=== PATIENT | male | born 1940 | race African-American/Black ===

== ENCOUNTER 2018-03-20 18:39 | Observation (INO) | payer OTHER, BC ==
[2018-03-20] MEDS ORDERED: ACETAMINOPHEN 500 MG TABLET (FP) PO ONE (19:59)
[2018-03-20] MEDS ORDERED: ACETAMINOPHEN 325 MG TABLET (FP) ONE (20:02)
--- NOTE | 2018-03-20 20:26 | PDOC ---
Attending Attestation - Resident Resident Name: Juanita Lopez - ED Attending Attestation I have performed the following: I have examined & evaluated the patient, The case was reviewed & discussed with the resident, I agree w/resident's findings & plan, Exceptions are as noted - HPI HPI: 77 yo M presents s/p fall 3 days ago presents with R hip pain. He states he was in [facility] on vacation, had a mechanical fall. He has had difficulty walking since the fall. Denies weakness, numbness. - Physicial Exam PE: GENERAL: Awake, alert, and fully oriented, in no acute distress HEAD: No signs of trauma EYES: PERRLA, EOMI, sclera anicteric, conjunctiva clear ENT: Auricles normal inspection, hearing grossly normal, nares patent, oropharynx clear without exudates. Moist mucosa NECK: Normal ROM, supple, no lymphadenopathy, JVD, or masses LUNGS: Breath sounds equal, clear to auscultation bilaterally. No wheezes, and no crackles HEART: Regular rate and rhythm, normal S1 and S2, no murmurs, rubs or gallops ABDOMEN: Soft, nontender, normoactive bowel sounds. No guarding, no rebound. No masses MUSCULOSKELETAL: R hip with pain on ROM. No deformity. Legs are symmetric in length. Normal range of motion, no edema. No clubbing or cyanosis. No cords, erythema, or tenderness NEUROLOGICAL: Cranial nerves II through XII grossly intact. Normal speech. Motor and sensation intact. SKIN: Warm, Dry, normal turgor, no rashes or lesions noted. - Medical Decision Making Pt with R hip pain s/p fall. Will obtain XR to r/o hip fx, pelvic fx.
--- NOTE | 2018-03-20 23:04 | PDOC ---
History of Present Illness - General Chief Complaint: Injury Stated Complaint: HIP PAIN/FALL Time Seen by Provider: 03/20/18 19:10 History Source: Patient Exam Limitations: No Limitations - History of Present Illness Initial Comments: 03/20/18 22:40 Pt is a 77yo m with PMH of CAD s/p stent placement presenting to ED with complaints of R hip pain s/p fall 3 days ago on . Pt said he was in the [facility] when he fell onto his hands and rolled onto his R hip. He obtained some scrapes and had R hip pain. He denies LOC, syncope. Pt went to be evaluated and was told that he was dehydrated which may have caused him to fall. Per pt he was then discharged. He was able to walk on Wednesday but had difficult walking and standing the rest of the weekend. Pt had to use a wheelchair to get onto the plane back here. Pt came right here to the hospital right after he landed. He endorses pain in the R posterior hip. He has not taken any medications for pain. Past History - Past Medical History Allergies/Adverse Reactions: Allergies Allergy/AdvReac Type Severity Reaction Status Date / Time No Known Allergies Allergy Verified 03/20/18 19:01 Home Medications: Ambulatory Orders Unobtainable 03/20/18 COPD: No HTN: Yes - Surgical History Cardiac Surgery: Yes (stent x3) - Suicide/Smoking/Psychosocial Hx Smoking Status: No Smoking History: Former smoker Have you smoked in the past 12 months: No Number of Cigarettes Smoked Daily: 0 Information on smoking cessation initiated: No Hx Alcohol Use: No Drug/Substance Use Hx: No Review of Systems - Review of Systems Able to Perform ROS?: Yes Constitutional: No: Chills, Fever HEENTM: No: Recent change in vision Respiratory: No: Cough, Shortness of Breath Cardiac (ROS): No: Chest Pain, Lightheadedness, Palpitations ABD/GI: No: Constipated, Diarrhea, Nausea, Rectal Bleeding, Vomiting, Abdominal cramping : No: Burning, Dysuria, Hematuria, Incontinence Musculoskeletal: Yes: See HPI, Back Pain, Joint Pain (R hip). No: Muscle Pain, Muscle Weakness, Neck Pain Integumentary: Yes: Other (abrasions on L elbow, R knee) Neurological: No: Headache, Numbness, Tingling, Tremors *Physical Exam - Vital Signs Last Vital Signs Temp Pulse Resp BP Pulse Ox 98.7 F 78 18 174/108 H 98 03/20/18 19:01 03/20/18 19:01 03/20/18 19:01 03/20/18 19:01 03/20/18 19:01 - Physical Exam General Appearance: Yes: Nourished, Appropriately Dressed, Mild Distress HEENT: positive: EOMI, LITZY, Hearing Grossly Normal Neck: positive: Trachea midline, Supple. negative: Lymphadenopathy (R), Lymphadenopathy (L) Respiratory/Chest: positive: Lungs Clear, Normal Breath Sounds. negative: Crackles, Rales, Rhonchi, Stridor, Wheezing Cardiovascular: positive: Regular Rhythm, Regular Rate. negative: S1, S2, Edema , JVD Vascular Pulses: Carotid (R): 2+, Carotid (L): 2+, Dorsalis-Pedis (R): 2+, Doralis-Pedis (L): 2+ Gastrointestinal/Abdominal: positive: Normal Bowel Sounds, Soft. negative: Distended, Guarding, Rebound, Tenderness Musculoskeletal: positive: Other (Tender R posterior hip. Pain with active ROM and passive ROM). negative: CVA Tenderness, Vertebral Tenderness Extremity: positive: Normal Capillary Refill, Pelvis Stable. negative: Swelling , Calf Tenderness Integumentary: positive: Normal Color, Dry, Warm, Other (abrasion to R knee and L elbow) Neurologic: positive: rigger helper II-XII NML intact, Fully Oriented, Alert, Normal Mood/ Affect, Normal Response, Motor Strength 5/5 ED Treatment Course - RADIOLOGY Radiology Studies Ordered: Category Date Time Status HIP & PELVIS-RIGHT [RAD] Stat Radiology 03/20/18 20:12 Taken - Medications Given in the ED: ED Medications Discontinued Medications Generic Name Dose Route Start Last Admin Trade Name Freq PRN Reason Stop Dose Admin Acetaminophen 1,000 mg 03/20/18 19:59 03/20/18 20:06 Tylenol - PO 03/20/18 20:00 1,000 mg ONCE ONE Administration Medical Decision Making - Medical Decision Making 03/20/18 23:12 77 yo m presenting with R hip/back pain s/p fall 3 days ago. Vitals: hypertensive PE: R hip pain with active and passive ROM. DDx: fracture, spasm Holding off on labs at this time, pt was not down for long periods of time, was ambulatory after event however complains of pain with movement. Will hold off on labs at this time. Will give pt Tylenol for pain. Xray of hip ordered. X[facility] sent to [facility]: mild osteoarthritic changes, multilevel lumbar degenerative disc disease. No evidence of fracture. Pt still complaining of pain and having pain with movements, having difficulty standing up. Will order CT. 03/21/18 00:21 CT negative for fracture. OA changes noted in hip as well as degenerative changes in lumbar spine. Considering percocet for pain control. Will reevaluate. If tolerating, can be dc home with pain control. If not, considering admission for pain and PT. Pt signed out to Dr. Camilo *DC/Admit/Observation/Transfer Diagnosis at time of Disposition: Hip pain Qualifiers: Laterality: right Qualified Code(s): M25.551 - Pain in right hip - Referrals - Patient Instructions - Post Discharge Activity
--- NOTE | 2018-03-21 00:21 | PDOC ---
*Physical Exam - Vital Signs Last Vital Signs Temp Pulse Resp BP Pulse Ox 98.7 F 78 18 174/108 H 98 03/20/18 19:01 03/20/18 19:01 03/20/18 19:01 03/20/18 19:01 03/20/18 19:01 03/21/18 00:17 Care endorsed to me by Dr. Lopez at the end of her shift. The patient is a 77 YOM with h/o osteoarthritis who fell in the [facility] on , initially was able to walk, but his hip pain has been worsening since yesterday. Returned from the [facility] today and has been having worsening pain on ambulation, unable to control it today. Got Tylenol here in the ED with partial relief. Had XR which showed no clear e/o hip fxr, still had residual pain, now pending CT hip/ pelvis. ED Treatment Course - Medications Given in the ED: ED Medications Discontinued Medications Generic Name Dose Route Start Last Admin Trade Name Freq PRN Reason Stop Dose Admin Acetaminophen 1,000 mg 03/20/18 19:59 03/20/18 20:06 Tylenol - PO 03/20/18 20:00 1,000 mg ONCE ONE Administration Medical Decision Making - Medical Decision Making 03/21/18 01:20 The patient initially stated he wanted to go home. Wishes to stand up from hospital bed and get back into wheelchair because this was more comfortable before. The tech and I help him into a wheelchair with significant increase in pain. The patient is clearly unable to reposition or stand or walk without two-person assist. He is unable to walk. Morphine 4 mg IV push is ordered. The patient will require admission. Admission labs ordered and PIV is placed. Will endorse patient's care to carpet jack resident pending admission lab results followed by admission to [facility]. *DC/Admit/Observation/Transfer Diagnosis at time of Disposition: Hip pain Qualifiers: Laterality: right Qualified Code(s): M25.551 - Pain in right hip Back pain Qualifiers: Back pain location: low back pain Chronicity: acute Back pain laterality: right Sciatica presence: without sciatica Qualified Code(s): M54.5 - Low back pain - Referrals - Patient Instructions - Post Discharge Activity
[2018-03-21] MEDS ORDERED: morphine CARPU-JECT 4 MG/1 ML DISP.SYRIN IVPUSH ONE (01:32)
[2018-03-21] MEDS ORDERED: SODIUM CHLORIDE 0.9% 500 ML INFUS.BAG IV ONE (01:33)
[2018-03-21] MEDS ORDERED: morphine SULFATE 4 MG/ML VIAL ONE (01:36)
[2018-03-21 02:10] LABS: BASO % 0.6 % (0-2.0); HEMOGLOBIN 15.2 GM/dL (11.7-16.9); LYMPH % 22.1 % (8-40); MEAN CELL VOLUME 94.1 fl (80-96); MEAN PLT VOLUME 9.2 fl (7.5-11.1); MONO % 8.2 % (3.8-10.2); NEUT % 62.1 % (42.8-82.8); PLATELET COUNT 223 K/MM3 (134-434); RBC 4.89 M/mm3 (4.00-5.60); RDW 14.8 % (11.9-15.9); WHITE BLOOD COUNT 7.3 K/mm3 (4.0-10.0)
[2018-03-21 02:22] LABS: INR 1.03 (0.83-1.09); PROTHROMBIN TIME (PATIENT) 12.2 SEC (9.7-13.0)
[2018-03-21 02:39] LABS: ALBUMIN 4.1 g/dl (3.4-5.0); ALK PHOS 92 U/L (45-117); ANION GAP 6 MMOL/L (8-16); BILIRUBIN,TOTAL 0.6 mg/dL (0.2-1); BLOOD UREA NITROGEN 12 mg/dL (7-18); CALCIUM 9.2 mg/dL (8.5-10.1); CHLORIDE 105 mmol/L (98-107); CO2 30 mmol/L (21-32); CREATININE 1.1 mg/dL (0.55-1.3); GLUCOSE,RANDOM 95 mg/dL (74-106); POTASSIUM 3.7 mmol/L (3.5-5.1); SGOT/AST 20 U/L (15-37); SGPT/ALT 25 U/L (13-61); SODIUM 141 mmol/L (136-145)
--- NOTE | 2018-03-21 02:52 | PDOC ---
*Physical Exam - Vital Signs Last Vital Signs Temp Pulse Resp BP Pulse Ox 98.7 F 78 18 174/108 H 98 03/20/18 19:01 03/20/18 19:01 03/20/18 19:01 03/20/18 19:01 03/20/18 19:01 ED Treatment Course - LABORATORY CBC & Chemistry Diagram: 03/21/18 01:50 03/21/18 01:50 - ADDITIONAL ORDERS Additional order review: Laboratory Results 03/21/18 01:50 Sodium 141 Potassium 3.7 Chloride 105 Carbon Dioxide 30 Anion Gap 6 L BUN 12 Creatinine 1.1 Creat Clearance w eGFR > 60 Random Glucose 95 Calcium 9.2 Total Bilirubin 0.6 AST 20 ALT 25 Alkaline Phosphatase 92 Total Protein 8.0 Albumin 4.1 03/21/18 01:50 RBC 4.89 MCV 94.1 MCHC 33.0 RDW 14.8 MPV 9.2 Neutrophils % 62.1 Lymphocytes % 22.1 Monocytes % 8.2 Eosinophils % 7.0 H Basophils % 0.6 - Medications Given in the ED: ED Medications Discontinued Medications Generic Name Dose Route Start Last Admin Trade Name Geovannyq PRN Reason Stop Dose Admin Acetaminophen 1,000 mg 03/20/18 19:59 03/20/18 20:06 Tylenol - PO 03/20/18 20:00 1,000 mg ONCE ONE Administration Morphine Sulfate 4 mg 03/21/18 01:32 03/21/18 01:51 Morphine Injection - IVPUSH 03/21/18 01:33 4 mg ONCE ONE Administration Sodium Chloride 1,000 ml 03/21/18 01:33 03/21/18 01:57 Normal Saline - IV 03/21/18 01:34 1,000 ml ONCE ONE Administration Medical Decision Making - Medical Decision Making 03/21/18 03:23 Labs unremarkable (CBC, CMP, INR) Case discussed with Dr. Guy Cardoza. Pt to be admitted for observation at this time. *DC/Admit/Observation/Transfer Diagnosis at time of Disposition: Hip pain Qualifiers: Laterality: right Qualified Code(s): M25.551 - Pain in right hip Back pain Qualifiers: Back pain location: low back pain Chronicity: acute Back pain laterality: right Sciatica presence: without sciatica Qualified Code(s): M54.5 - Low back pain - Discharge Dispostion Condition at time of disposition: Fair Decision to Admit order: Yes - Referrals - Patient Instructions - Post Discharge Activity
--- NOTE | 2018-03-21 03:44 | PN ---
Teaching Attending Note Name of Resident: Guy Bailey ATTENDING PHYSICIAN STATEMENT I saw and evaluated the patient. I reviewed the resident's note and discussed the case with the resident. I agree with the resident's findings and plan as documented. SUBJECTIVE: Patient is a 77 year old man with PMH of CAD s/p stent placement presenting to ER with complaints of R hip pain s/p fall 3 days ago on . He was in the [facility] when he fell onto his hands and rolled onto his R hip. He obtained some scrapes and had R hip pain. He denies LOC, syncope but says he has had episodes of syncope prior to this recent event. He went to be evaluated and was told that he was dehydrated which may have caused him to fall. He was able to walk on Wednesday but had difficult walking and standing the rest of the weekend. He had to use a wheelchair to get onto the plane back here. He came right here to the hospital right after he landed. He has pain in the right posterior hip. OBJECTIVE: Alert Vital Signs Period Temp Pulse Resp BP Sys/Tao Pulse Ox Last 24 Hr 98.7 F 78 18 174/108 98 HEENT: No Jaundice, eye redness or discharge, PERRLA, EOMI. Normocephalic, atraumatic. External ears are normal and hearing is grossly intact. No nasal discharge. Neck: Supple, nontender. No palpable adenopathy or thyromegaly. No JVD Chest: Good effort. Clear to auscultation and percussion. Heart: Regular. No S3, rub or murmur Abdomen: Not distended, soft, nontender and no HSM. No rebound or guarding. Normoactive bowel sounds. Ext: Peripheral pulses intact. No leg edema. Left knee and left elbow abrasion. Tender right hip. Skin: Warm and dry. No petechiae, rash or ecchymosis. Neuro: Alert. Oriented x3. CN 2-12 grossly intact. Sensation grossly intact in all four extremities and DTR are symmetric. Gait cannot be tested for safety reasons. Home Medications Medication Instructions Recorded Unobtainable 03/20/18 Abnormal Lab Results 03/21/18 03/21/18 01:50 01:50 Eosinophils % 7.0 H Anion Gap 6 L ASSESSMENT AND PLAN: 1. Fall and Inability to ambulate - Xrays and CT of the hip do not reveal any fracture or acute pathology. Will get Head CT and MRI of his spinal cord. Get ECHO, carotid doppler and do neurochecks q 2 hours. Consult neurology. Apply antibacterial cream to skin abrasions. 2. DVT prophylaxis - Lovenox 40 mg SQ q 24 hours. 3. Advance directives - Full code
--- NOTE | 2018-03-21 04:09 | HP ---
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 this past . Pt endorses he was on the sidewalk jogging in the [facility] when he fell onto the curbside and rolled onto the street. Pt states he hit his head and right hip as well as scraping both his arms and legs. Pt cannot recall if he lost consciousness. Pt was ultimately seen by a nurse in the [facility] who attributed his fall to dehydration. Pt states he did not seek hospital care because of the exorbitant cost in the [facility]. Pt endorses that he has experienced multiple episodes of "blacking out" in the past where he has woken up in a puddle of blood as well as chipped his front tooth (most recent episode November this year). States he has delayed seeking treatment in the past. Denies headache, shortness of breath, chest pain, lightheadedness, nausea, or vomiting. ER course was notable for: (1) BP 174/108 on admission (2) CT Head--> No evidence of acute ischemic changes, mass effect, or acute hemorrhage (3) Recent Travel: PAST MEDICAL HISTORY: M.I, cannot recall how many years ago. 3 coronary stents. PAST SURGICAL HISTORY: B/L rotator cuff surgery. b/l cataract surgery. Social History: Smoking: Quit 50 years ago, smoked 1 pack/day. Alcohol: Denies Drugs: Denies Family History: Allergies No Known Allergies Allergy (Verified 03/20/18 19:01) HOME MEDICATIONS: Home Medications Medication Instructions Recorded Unobtainable 03/20/18 REVIEW OF SYSTEMS CONSTITUTIONAL: Absent: fever, chills, diaphoresis, generalized weakness, malaise, loss of appetite, weight change HEENT: Absent: rhinorrhea, nasal congestion, throat pain, throat swelling, difficulty swallowing, mouth swelling, ear pain, eye pain, visual changes CARDIOVASCULAR: Absent: chest pain, syncope, palpitations, irregular heart rate, lightheadedness , peripheral edema RESPIRATORY: Absent: cough, shortness of breath, dyspnea with exertion, orthopnea, wheezing, stridor, hemoptysis GASTROINTESTINAL: Absent: abdominal pain, abdominal distension, nausea, vomiting, diarrhea, constipation, melena, hematochezia GENITOURINARY: Absent: dysuria, frequency, urgency, hesitancy, hematuria, flank pain, genital pain MUSCULOSKELETAL: PRESENT: myalgia, back pain, SKIN: Absent: rash, itching, pallor HEMATOLOGIC/IMMUNOLOGIC: Absent: easy bleeding, easy bruising, lymphadenopathy, frequent infections ENDOCRINE: Absent: unexplained weight gain, unexplained weight loss, heat intolerance, cold intolerance NEUROLOGIC: PRESENT: , focal weakness, unsteady gait PSYCHIATRIC: Absent: anxiety, depression, suicidal or homicidal ideation, hallucinations. PHYSICAL EXAMINATION Vital Signs - 24 hr 03/20/18 19:01 Temperature 98.7 F Pulse Rate 78 Respiratory 18 Rate Blood Pressure 174/108 H O2 Sat by Pulse 98 Oximetry (%) GENERAL: AAOx3, NAD HEAD: Raised area 2/2 mechanical injury. No open wounds or active bleeding. EYES: PERRLA, EOMI EARS, NOSE, THROAT: MMM NECK: Normal range of motion, supple without lymphadenopathy, JVD, or masses. LUNGS: CTA B/L HEART: RRR, No MRG S1S2 ABDOMEN: ND, NT, No HSM. BS+ MUSCULOSKELETAL: Full ROM throughout. UPPER EXTREMITIES: No CCE LOWER EXTREMITIES: No CCE. Abrasions present 2/2 mechanical fall. NEUROLOGICAL: CN 2-12 intact, Unable to assess gait as pt in severe pain when standing PSYCHIATRIC: Cooperative. Good eye contact. Appropriate mood and affect. SKIN: Abrasion right leg, open wound left elbow 2/2 fall. Laboratory Results - last 24 hr 03/21/18 03/21/18 03/21/18 01:50 01:50 01:50 WBC 7.3 RBC 4.89 Hgb 15.2 Hct 46.0 MCV 94.1 MCH 31.0 MCHC 33.0 RDW 14.8 Plt Count 223 MPV 9.2 Absolute Neuts (auto) 4.6 Neutrophils % 62.1 Lymphocytes % 22.1 Monocytes % 8.2 Eosinophils % 7.0 H Basophils % 0.6 Nucleated RBC % 0 PT with INR 12.20 INR 1.03 Sodium 141 Potassium 3.7 Chloride 105 Carbon Dioxide 30 Anion Gap 6 L BUN 12 Creatinine 1.1 Creat Clearance w eGFR > 60 Random Glucose 95 Calcium 9.2 Total Bilirubin 0.6 AST 20 ALT 25 Alkaline Phosphatase 92 Total Protein 8.0 Albumin 4.1 ASSESSMENT/PLAN: Pt is a 77 y/o gentleman with a past medical history of CAD (s/p 3 stents) who presented yesterday evening (03/20/18) to [facility] c/o r hip pain that he encountered after experiencing a mechanical fall while he was vacationing in the [facility] this past . # Syncope 2/2 unknown cause - CT Pelvis--> Mild b/l osteoarthritic changes greater on right than left. Ectasia of infrarenal abdominal aorta. No Evidence of pelvic fracture -Head CT pending - MRI of spinal cord pending - Echo pending - Carotid doppler pending - EKG pending -Day team to reconcile medications, doesn't know name of current NOAC he is taking. -Cardiology consult -Neurology consult #HTN -Pt cannot recall medication list. Day team to reconcile medications - BP 153/93 FEN No Fluids Monitor electrolytes Sodium controlled diet DVT ppx: Day team to reconcile medication Dispo: Tele obs Visit type - Emergency Visit Emergency Visit: Yes ED Registration Date: 03/21/18 Care time: The patient presented to the Emergency Department on the above date and was hospitalized for further evaluation of their emergent condition. - New Patient This patient is new to me today: Yes Date on this admission: 03/21/18 - Critical Care Critical Care patient: No
[2018-03-21 08:07] LABS: BASO % 0.5 % (0-2.0); EOS % 6.7 % (0-4.5); HEMATOCRIT 44.2 % (35.4-49); HEMOGLOBIN 14.3 GM/dL (11.7-16.9); LYMPH % 14.1 % (8-40); MCH 30.4 pg (25.7-33.7); MCHC 32.3 g/dl (32.0-35.9); MEAN CELL VOLUME 94.1 fl (80-96); MEAN PLT VOLUME 8.5 fl (7.5-11.1); MONO % 7.1 % (3.8-10.2); NEUT % 71.6 % (42.8-82.8); PLATELET COUNT 208 K/MM3 (134-434); RDW 14.5 % (11.9-15.9); WHITE BLOOD COUNT 7.7 K/mm3 (4.0-10.0)
[2018-03-21 08:21] LABS: INR 1.07 (0.83-1.09); PROTHROMBIN TIME (PATIENT) 12.6 SEC (9.7-13.0)
[2018-03-21 08:23] LABS: ACTIVATED PTT 35.2 SECONDS (25.2-36.5)
[2018-03-21 08:32] LABS: ANION GAP 1 MMOL/L (8-16); BLOOD UREA NITROGEN 11 mg/dL (7-18); CALCIUM 9.1 mg/dL (8.5-10.1); CHLORIDE 110 mmol/L (98-107); CO2 29 mmol/L (21-32); CREATININE 0.9 mg/dL (0.55-1.3); GLUCOSE,RANDOM 92 mg/dL (74-106); MAGNESIUM 2.3 mg/dL (1.8-2.4); PHOSPHOROUS 2.9 mg/dL (2.5-4.9); POTASSIUM 4.4 mmol/L (3.5-5.1); SODIUM 140 mmol/L (136-145)
--- NOTE | 2018-03-21 09:19 | CON.CARD ---
Consult Consult Specialty:: Cardiology Referred by:: Hospitalist Medicine Reason for Consultation:: Syncope - History of Present Illness Chief Complaint: Syncope History of Present Illness: Patient is a 77 year old man with PMH of HTN, bilateral carotid occlusion, CAD s /p stent placement presented to ER with complaints of R hip pain s/p mechanical fall 3 days ago on . He was in the [facility] when he fell onto his hands and rolled onto his R hip. He obtained some scrapes and had R hip pain. He denies LOC, true syncope, yet has history of syncope suspected to be referable to cerebral hypoperfusion through vertebral artery and [place] and balance impairment per cardiology notes. He was able to walk on Wednesday but had difficult walking and standing the rest of the weekend. He has pain in the right posterior hip. He denies chest pain, dyspnea, palpitations, orthopnea, PND or LE edema. 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 Lebron Babin [facility] - History Source History Provided By: Patient Limitations to Obtaining History: No Limitations - Alcohol/Substance Use Hx Alcohol Use: No - Smoking History Smoking history: Former smoker Have you smoked in the past 12 months: No Aproximately how many cigarettes per day: 0 Home Medications - Allergies Allergies/Adverse Reactions: Allergies Allergy/AdvReac Type Severity Reaction Status Date / Time No Known Allergies Allergy Verified 03/20/18 19:01 - Home Medications Home Medications: Ambulatory Orders Gabapentin [Neurontin -] 300 mg PO Q8H 03/21/18 Metoprolol Succinate [Toprol Xl -] 25 mg PO DAILY 03/21/18 RX: Atorvastatin Calcium 80 mg PO HS 03/21/18 RX: Losartan Potassium 25 mg PO DAILY 03/21/18 Family Disease History - Family Disease History Family Disease History: Heart Disease: Father (Passed [place] at 76), Mother (Passed [place] at 73) Review of Systems - Review of Systems Constitutional: reports: No Symptoms Eyes: reports: No Symptoms HENT: reports: No Symptoms Neck: reports: No Symptoms Cardiovascular: reports: No Symptoms Respiratory: reports: No Symptoms Gastrointestinal: reports: No Symptoms Genitourinary: reports: No Symptoms Musculoskeletal: reports: Decreased ROM, Extremity Pain, Joint Pain Integumentary: reports: No Symptoms Neurological: reports: No Symptoms Endocrine: reports: No Symptoms Vital Signs: Vital Signs Temperature 98.7 F 03/20/18 19:01 Pulse Rate 86 03/21/18 06:15 Respiratory Rate 17 03/21/18 06:15 Blood Pressure 147/82 03/21/18 06:15 O2 Sat by Pulse Oximetry (%) 98 03/21/18 06:46 Constitutional: Yes: No Distress, Calm, Thin Neck: Yes: Supple Respiratory: Yes: Regular, CTA Bilaterally Gastrointestinal: Yes: Normal Bowel Sounds, Soft Cardiovascular: Yes: Regular Rate and Rhythm JVD: No Carotid Bruit: No Heart Sounds: Yes: S1, S2 Murmur: Yes: Systolic Murmur, Grade 1 Edema: No - Other Data Labs, Other Data: CBC, BMP 03/21/18 07:45 03/21/18 07:45 INR, PTT INR 1.07 (0.83-1.09) 03/21/18 07:45 SR @ 61 occ PVC similar to previous 02/16/2018 Imaging - Results Chest X-ray: Report Reviewed (NAD) Cat Scan: Report Reviewed (No acute changes) Ultrasound: Report Reviewed (Bilateral prox ICA occlusions known from previous) Problem List - Problems (1) Syncope Code(s): R55 - SYNCOPE AND COLLAPSE Qualifiers: Syncope type: unspecified Qualified Code(s): R55 - Syncope and collapse (2) Hypertensive heart disease Code(s): I11.9 - HYPERTENSIVE HEART DISEASE WITHOUT HEART FAILURE Qualifiers: Heart failure presence: without heart failure Qualified Code(s): I11.9 - Hypertensive heart disease without heart failure (3) S/P coronary artery stent placement Code(s): Z95.5 - PRESENCE OF CORONARY ANGIOPLASTY IMPLANT AND GRAFT (4) Carotid stenosis, bilateral Code(s): I65.23 - OCCLUSION AND STENOSIS OF BILATERAL CAROTID ARTERIES (5) Hyperlipidemia Code(s): E78.5 - HYPERLIPIDEMIA, UNSPECIFIED (6) Coronary artery disease Code(s): I25.10 - ATHSCL HEART DISEASE OF [place] CORONARY ARTERY W/O ANG PCTRS Qualifiers: Coronary Disease-Associated Artery/Lesion type: [place] artery [place] vs. transplanted heart: [place] heart Associated angina: without angina Qualified Code(s): I25.10 - Atherosclerotic heart disease of [place] coronary artery without angina pectoris (7) Old myocardial infarction Code(s): I25.2 - OLD MYOCARDIAL INFARCTION Assessment/Plan 02/19/15 MPI: Normal study 06/20/11 Stress echo: Mild LVH, mild TR, negative ischemia 07/21/11 Carotid US: Total ICA bilaterally with normal vertebral artery flow 1. Post mechanical fall and gait instability 2. HTN/HCVD 3. H/o syncope with bilateral carotid occlusion likely related to decreased cerebral perfusion through verterbral circulation and [place] 4. CAD h/o NSTEMI Cypher NAVNEET RCA 02/09 5. Hyperlipidemia 6. PVC P:1. Avoid excessive BP reduction below SBP 130. 2. Continue ASA 81 qd, Lipitor 80 qd, losartan 25 qd, Toprol XL 25 qd, d/c HCTZ 25 qod for now 3. F/u echo already ordered, telemetry monitoring r/o pause, PT for gait training 4. Thank you for consultative opportunity, patient to continue f/u with Dr. Lebron Babin [facility] - [facility]
--- NOTE | 2018-03-21 10:34 | EKG ---
Test Reason : Blood Pressure : / mmHG Vent. Rate : 065 BPM Atrial Rate : 065 BPM P-R Int : 120 ms QRS Dur : 082 ms QT Int : 416 ms P-R-T Axes : 067 040 051 degrees QTc Int : 432 ms SINUS RHYTHM WITH OCCASIONAL PREMATURE VENTRICULAR COMPLEXES POSSIBLE LEFT ATRIAL ENLARGEMENT BORDERLINE ECG NO PREVIOUS ECGS AVAILABLE Confirmed by SHAUN PALMER, ENIO ([id number]) on 03/21/2018 10:34:12 AM Referred By: Confirmed By:ENIO DUNN MD
[2018-03-21 11:21] VITALS: BMI 24.7
[2018-03-21] MEDS ORDERED: morphine CARPU-JECT 2 MG/1 ML DISP.SYRIN IVPUSH PRN (11:30)
[2018-03-21] MEDS: morphine SULFATE 4 MG/ML VIAL IVPUSH PRN (11:39)
[2018-03-21] MEDS: LOSARTAN POTASSIUM 25 MG TABLET PO SCH (12:58)
[2018-03-21] MEDS: metoPROLOL SUCCINATE 25 MG TAB.SR.24H (FP) PO SCH (12:58)
--- NOTE | 2018-03-21 14:23 | PN ---
Physical Exam: SUBJECTIVE: Pt reports continued pain from his left hip. Has not received any pain medication at this point. No more episodes of presyncopal events. Denies any weakness, numbness, headaches, blurry vision. OBJECTIVE: Vital Signs Period Temp Pulse Resp BP Sys/Tao Pulse Ox Last 24 Hr 98.1 F-98.7 F 69-86 17-18 147-174/76-108 98-99 GENERAL: NAD, awake, alert, and fully oriented, laying in bed HEENT: EOMI, NEGRO, sclera anicteric, MMM NECK: Soft, No JVD, No bruits auscultated LUNGS: CTA bilaterally, no wheezes, no crackles, no accessory muscle use. HEART: Regular rate and rhythm, S1, S2 without murmur, rub or gallop. ABDOMEN: Soft, nontender, nondistended, normoactive bowel sounds, no guarding EXTREMITIES: 2+ pulses, warm, well-perfused, no edema. R hip without any erythema or swelling at this point; no overlying skin changes as well NEUROLOGICAL: outside upholsterer II through XII grossly intact. Strength 5/5 in upper extremities. No deficits to light touch. Lower extremity exam limited on R side due to hip pain. Normal speech PSYCH: Normal mood, normal affect. SKIN: Warm, dry, no rashes or lesions noted Laboratory Results - last 24 hr 03/21/18 03/21/18 03/21/18 01:45 01:50 01:50 WBC 7.3 RBC 4.89 Hgb 15.2 Hct 46.0 MCV 94.1 MCH 31.0 MCHC 33.0 RDW 14.8 Plt Count 223 MPV 9.2 Absolute Neuts (auto) 4.6 Neutrophils % 62.1 Lymphocytes % 22.1 Monocytes % 8.2 Eosinophils % 7.0 H Basophils % 0.6 Nucleated RBC % 0 PT with INR 12.20 INR 1.03 PTT (Actin FS) Sodium Potassium Chloride Carbon Dioxide Anion Gap BUN Creatinine Creat Clearance w eGFR Random Glucose Calcium Phosphorus Magnesium Total Bilirubin AST ALT Alkaline Phosphatase Total Protein Albumin Blood Type A POSITIVE Antibody Screen Negative 03/21/18 03/21/18 03/21/18 01:50 07:45 07:45 WBC 7.7 RBC 4.70 Hgb 14.3 Hct 44.2 MCV 94.1 MCH 30.4 MCHC 32.3 RDW 14.5 Plt Count 208 MPV 8.5 Absolute Neuts (auto) 5.5 Neutrophils % 71.6 Lymphocytes % 14.1 D Monocytes % 7.1 Eosinophils % 6.7 H Basophils % 0.5 Nucleated RBC % 0 PT with INR 12.60 INR 1.07 PTT (Actin FS) 35.2 Sodium 141 Potassium 3.7 Chloride 105 Carbon Dioxide 30 Anion Gap 6 L BUN 12 Creatinine 1.1 Creat Clearance w eGFR > 60 Random Glucose 95 Calcium 9.2 Phosphorus Magnesium Total Bilirubin 0.6 AST 20 ALT 25 Alkaline Phosphatase 92 Total Protein 8.0 Albumin 4.1 Blood Type Antibody Screen 03/21/18 03/21/18 07:45 07:45 WBC RBC Hgb Hct MCV MCH MCHC RDW Plt Count MPV Absolute Neuts (auto) Neutrophils % Lymphocytes % Monocytes % Eosinophils % Basophils % Nucleated RBC % PT with INR INR PTT (Actin FS) Sodium 140 Potassium 4.4 Chloride 110 H Carbon Dioxide 29 Anion Gap 1 L BUN 11 Creatinine 0.9 Creat Clearance w eGFR > 60 Random Glucose 92 Calcium 9.1 Phosphorus 2.9 Magnesium 2.3 Total Bilirubin AST ALT Alkaline Phosphatase Total Protein Albumin Blood Type A POSITIVE Antibody Screen Active Medications Generic Name Dose Route Start Last Admin Trade Name Freq PRN Reason Stop Dose Admin Atorvastatin Calcium 80 mg 03/21/18 22:00 Lipitor - PO HS DEMETRA Losartan Potassium 25 mg 03/21/18 12:30 03/21/18 12:58 Cozaar - PO 25 mg DAILY DEMETRA Administration Metoprolol Succinate 25 mg 03/21/18 12:30 03/21/18 12:58 Toprol Xl - PO 25 mg DAILY DEMETRA Administration Morphine Sulfate 2 mg 03/21/18 11:30 03/21/18 11:39 Morphine Sulfate IVPUSH 2 mg Q4H PRN Administration PAIN LEVEL 7 - 10 ASSESSMENT/PLAN: 1) Recurrent syncopal episodes --Carotid US showing b/l ICA occlusion --Consulted vascular surgery --Ordered CTA Neck stat --If minimal flow there may be benefit for CEA, however if no flow no surgical intervention at this time --Transfer to telemetry 2) HTN --Allow for some permissive HTN due to syncopal episodes and minimal flow from carotid stenosis --Pt reports being on Toprol XL 25mg qDaily (edit: confirmed with pharmacy) --Pt reports being on Cozaar 25mg qDaily (edit: confirmed with pharmacy) 3) CAD (s/p stenting; unknown material) --Sees Dr. Babin as an outpatient; will obtain records from offices --Will need to be medication reconciled --Unknown if pt on AP therapy at this point --ASA 81mg qdaily for now --Cardiology consulted; appreciate recommendations 4) HLD --Pt states he is on Lipitor HS, but does not know dose --Will continue Lipitor 80mg HS until medications reconciled 5) S/P mechanicl fall --Hip pain w/o evidence of fracture or vascular compromise to bone --Morphine 2mg q4h for pain 7-10 currently --Physical therapy FEN: Fluids: not indicated currently Electrolyte abnormalities: None currently Nutrition: Sodium-controlled diet PPX: DVT - Heparin SQ due to immobility; can hold prior to surgical intervention if needed Dispo: Transfer to telemetry for frequent neuro checks and stroke prevention Case discussed with Dr. Aashish Whitaker, DO - IM PGY-2 Visit type - Emergency Visit Emergency Visit: Yes ED Registration Date: 03/21/18 Care time: The patient presented to the Emergency Department on the above date and was hospitalized for further evaluation of their emergent condition. - New Patient This patient is new to me today: Yes Date on this admission: 03/21/18 - Critical Care Critical Care patient: No
--- NOTE | 2018-03-21 19:00 | PN ---
Teaching Attending Note Name of Resident: Harris Grider ATTENDING PHYSICIAN STATEMENT/Brief attending note (PT ADMITTED AFTER MIDNIGHT) I saw and evaluated the patient. I reviewed the resident's note and discussed the case with the resident. I agree with the resident's findings and plan as documented. In brief, the patient's sx have resolved. Cardiology saw him and he will not require any further evaluation, just tele monitoring to r/o pauses, etc. His sx on presentation likely 2/2 hypoperfusion due to carotid A disease. He is afebrile and hemodynamically stable. We will take care to avoid drops in BP. Discussed case with Dr. Almonte; he ordered CTA neck to see if there is flow- plans for procedure will follow. 1. Post mechanical fall and gait instability 2. HTN/HCVD 3. H/o syncope with bilateral carotid occlusion 4. CAD h/o NSTEMI (NAVNEET RCA 02/09) 5. Hyperlipidemia
[2018-03-21] MEDS: ATORVASTATIN CA 80 MG TABLET (FP) PO SCH (21:12)
[2018-03-22] MEDS: morphine SULFATE 4 MG/ML VIAL IVPUSH PRN (06:18)
[2018-03-22] MEDS: metoPROLOL SUCCINATE 25 MG TAB.SR.24H (FP) PO SCH (09:00)
[2018-03-22] MEDS: ASPIRIN 81 MG CHEWABLE TABLETS PO SCH (09:00)
[2018-03-22] MEDS: LOSARTAN POTASSIUM 25 MG TABLET PO SCH (09:00)
--- NOTE | 2018-03-22 11:04 | PN ---
Progress Note, Physician Chief Complaint: Events noted Complains of right hip pain History of Present Illness: Patient was seen and examined. Awake and alert. Chart was reviewed Denies chest pain. SOB or palpitations As outlined - Current Medication List Current Medications: Active Medications Aspirin (Asa -) 81 mg PO DAILY [facility] Last Admin: 03/22/18 09:00 Dose: 81 mg Atorvastatin Calcium (Lipitor -) 80 mg PO HS [facility] Last Admin: 03/21/18 21:12 Dose: 80 mg Heparin Sodium (Porcine) (Heparin -) 5,000 unit SQ TID [facility] Losartan Potassium (Cozaar -) 25 mg PO DAILY [facility] Last Admin: 03/22/18 09:00 Dose: 25 mg Metoprolol Succinate (Toprol Xl -) 25 mg PO DAILY [facility] Last Admin: 03/22/18 09:00 Dose: 25 mg Tramadol HCl (Ultram -) 50 mg PO Q12H PRN PRN Reason: PAIN LEVEL 7 - 10 - Objective Vital Signs: Vital Signs Temperature 98.2 F 03/22/18 06:00 Pulse Rate 84 03/22/18 06:00 Respiratory Rate 20 03/22/18 06:00 Blood Pressure 164/93 03/22/18 06:00 O2 Sat by Pulse Oximetry (%) 97 03/22/18 00:00 Eyes: Yes: PERRL HENT: Yes: Atraumatic Neck: Yes: Supple Cardiovascular: Yes: Regular Rate and Rhythm, S1, S2 Respiratory: Yes: CTA Bilaterally Gastrointestinal: Yes: Normal Bowel Sounds, Soft. No: Tenderness Edema: No Additional Findings/Remarks: - Review of Systems Constitutional: denies: Chills, Fever Cardiovascular: denies: Chest Pain, Palpitations. denies: Shortness of Breath Respiratory: denies: Cough, Hemoptysis, Orthopnea, PND, SOB, SOB on Exertion Gastrointestinal: denies: Abdominal Pain, Constipation, Diarrhea, Melena, Nausea , Rectal Bleeding, Vomiting Genitourinary: denies: Dysuria, Hematuria Musculoskeletal: (+) Back Pain, denies:Joint Pain Neurological: denies: Dizziness, Headache, Seizure, (+) Syncope Labs: CBC, BMP 03/21/18 07:45 03/21/18 07:45 INR, PTT INR 1.07 (0.83-1.09) 03/21/18 07:45 Problem List - Problems (1) Back pain Code(s): M54.9 - DORSALGIA, UNSPECIFIED Qualifiers: Back pain location: low back pain Chronicity: acute Back pain laterality : right Sciatica presence: without sciatica Qualified Code(s): M54.5 - Low back pain (2) Carotid stenosis, bilateral Code(s): I65.23 - OCCLUSION AND STENOSIS OF BILATERAL CAROTID ARTERIES (3) Coronary artery disease Code(s): I25.10 - ATHSCL HEART DISEASE OF [place] CORONARY ARTERY W/O ANG PCTRS Qualifiers: Coronary Disease-Associated Artery/Lesion type: [place] artery [place] vs. transplanted heart: [place] heart Associated angina: without angina Qualified Code(s): I25.10 - Atherosclerotic heart disease of [place] coronary artery without angina pectoris (4) Hyperlipidemia Code(s): E78.5 - HYPERLIPIDEMIA, UNSPECIFIED Qualifiers: Hyperlipidemia type: pure hypercholesterolemia Qualified Code(s): E78.00 - Pure hypercholesterolemia, unspecified; E78.0 - Pure hypercholesterolemia (5) Hypertensive heart disease Code(s): I11.9 - HYPERTENSIVE HEART DISEASE WITHOUT HEART FAILURE Qualifiers: Heart failure presence: without heart failure Qualified Code(s): I11.9 - Hypertensive heart disease without heart failure (6) Old myocardial infarction Code(s): I25.2 - OLD MYOCARDIAL INFARCTION (7) S/P coronary artery stent placement Code(s): Z95.5 - PRESENCE OF CORONARY ANGIOPLASTY IMPLANT AND GRAFT (8) Syncope Code(s): R55 - SYNCOPE AND COLLAPSE Qualifiers: Syncope type: unspecified Qualified Code(s): R55 - Syncope and collapse Assessment/Plan 1. Post mechanical fall and gait instability 2. HTN/HCVD 3. History of syncope with bilateral carotid occlusion likely related to decreased cerebral perfusion through verterbral circulation and [place] 4. CAD h/o NSTEMI Cypher NAVNEET RCA 5. Hyperlipidemia 6. PVC PLAN: 1. Monitor BP 2. Continue ASA 81 QD, Lipitor 80 QD, Losartan 25 QD and Toprol XL 25 QD 3. Echocardiography to assess LV/RV and valvular function 4. Fall precaution and gait training 5. CTA neck await official report. Vascular surgery input to follow Further plans are to follow. Follow up with Dr. Lebron Babin ([place]) with [facility] as outpatient Chirag Trammell MD
--- NOTE | 2018-03-22 12:10 | ECHO ---
Name: FRANCINE WILDER Exam:Adult Echocardiogram Study Date: 03/22/2018 09:17 AM Age: 77 yrs Height: 74 in Weight: 190 lb BSA: 2.1 m2 MMode/2D Measurements & Calculations IVSd: 1.0 cm Ao root diam: 3.4 cm LVIDd: 4.7 cm LA dimension: 2.8 cm LVIDs: 3.0 cm ACS: 1.9 cm LVPWd: 0.94 cm IVSs: 1.3 cm LVPWs: 1.2 cm EDV(Teich): 104.3 ml ESV(Teich): 35.3 ml Doppler Measurements & Calculations MV E max marcus: 71.3 cm/sec Ao V2 max: 117.9 cm/sec MV A max marcus: 50.8 cm/sec Ao max P.6 mmHg MV E/A: 1.4 Ao V2 mean: 79.1 cm/sec Ao mean P.8 mmHg Ao V2 VTI: 21.2 cm AI P1/2t: 514.7 msec AI max marcus: 408.3 cm/sec MR max marcus: 363.2 cm/sec AI max P.2 mmHg MR max P.9 mmHg AI dec slope: 232.3 cm/sec2 TR max marcus: 195.8 cm/sec Med Peak E' Marcus: 5.5 cm/sec TR max P.3 mmHg Med E/e': 13.0 Lat Peak E' Marcus: 4.1 cm/sec Lat E/e': 17.6 Procedure A two-dimensional transthoracic echocardiogram with color flow and Doppler was performed. The study w as technically difficult with many images being suboptimal in quality. The patient was in normal sinus r hythm during the exam. Left Ventricle The left ventricle is normal in size. Left ventricular systolic function is normal. Ejection Fraction = 55- 60%. Right Ventricle The right ventricle is not well visualized. The right ventricle is normal size. The right ventricular systolic function is normal. Atria The left atrial size is normal. Right atrial size is normal. Mitral Valve There is mild mitral annular calcification. There is trace mitral regurgitation. Tricuspid Valve The tricuspid valve is normal. There is trace tricuspid regurgitation. Aortic Valve The aortic valve opens well. The aortic valve is not well visualized. There is mild aortic sclerosis. ;. No aortic regurgitation is present. Pulmonic Valve The pulmonic valve is not well visualized. Great Vessels The aortic root is not well visualized. Pericardium/Pleura There is no pericardial effusion. Interpretation Summary Left ventricular systolic function is normal. The right ventricular systolic function is normal. There is mild mitral annular calcification. There is trace mitral regurgitation. There is trace tricuspid regurgitation. There is mild aortic sclerosis.; There is no pericardial effusion. MD Cory Marti 03/22/2018 12:09 PM
--- NOTE | 2018-03-22 12:18 | CONSULT ---
- Consultation REQUESTING PROVIDER: CONSULT REQUEST: We have been asked to surgically evaluate this patient for bilateral carotid stenosis. PCP:Chris Zendejas MD HISTORY OF PRESENT ILLNESS: 77yo M who was admitted to the hospital for syncope and difficulty walking, had carotid US done during work up. Pt was found to have complete occlusion of his carotids bilaterally. Pt states that he has a history of intermittant syncopal episodes over several years. Pt denies any history of stroke or TIA. Pt denies vision changes. Pt states that he smoked for 50 years 1/2 ppd, pt quit 13 years ago. PMHx: HTN, CAD s/p NSTEMI, HLD PSHx: Bilateral rotator cuff repair, Cataract surgery Home Medications Medication Instructions Recorded Atorvastatin Calcium 80 mg PO HS 03/21/18 Gabapentin [Neurontin -] 300 mg PO Q8H 03/21/18 Losartan Potassium 25 mg PO DAILY 03/21/18 Metoprolol Succinate [Toprol Xl -] 25 mg PO DAILY 03/21/18 Allergies Allergy/AdvReac Type Severity Reaction Status Date / Time latex Allergy Verified 03/21/18 15:15 REVIEW OF SYSTEMS: CONSTITUTIONAL: Absent: fever, chills, diaphoresis, generalized weakness, malaise, loss of appetite, weight change CARDIOVASCULAR: Absent: chest pain, palpitations, irregular heart rate, lightheadedness, peripheral edema RESPIRATORY: Absent: cough, shortness of breath, dyspnea with exertion, wheezing, stridor, hemoptysis NEUROLOGIC: Absent: headache, focal weakness, paresthesias, dizziness, seizure, mental status changes, bladder or bowel incontinence PHYSICAL EXAM: GENERAL: Awake, alert, and fully oriented, in no acute distress. HEAD: Normal with no signs of trauma. EYES: PERRL, sclera anicteric, conjunctiva clear. NECK: Normal ROM, supple without lymphadenopathy, JVD, or masses. LUNGS: Clear to auscultation bilat anteriorly. No wheezes, and no crackles. No accessory muscle use. HEART: Regular rate and rhythm. No murmurs MUSCULOSKELETAL: Normal ROM at all joints. No bony deformities or tenderness. No CVA tenderness. UPPER EXTREMITIES: 2+ pulses, warm, well-perfused. No cyanosis. Cap refill <2 seconds. No peripheral edema. LOWER EXTREMITIES: warm, well-perfused. No calf tenderness. No peripheral edema. NEUROLOGICAL: Normal speech, gait not observed. PSYCH: Cooperative. Good eye contact. Appropriate mood and affect. SKIN: Warm, dry, normal turgor, no rashes or lesions noted. Vital Signs Temperature 98.2 F 03/22/18 10:00 Pulse Rate 84 03/22/18 10:00 Respiratory Rate 20 03/22/18 10:00 Blood Pressure 164/93 03/22/18 10:00 O2 Sat by Pulse Oximetry (%) 96 03/22/18 08:00 Lab Results WBC 7.7 K/mm3 (4.0-10.0) 03/21/18 07:45 RBC 4.70 M/mm3 (4.00-5.60) 03/21/18 07:45 Hgb 14.3 GM/dL (11.7-16.9) 03/21/18 07:45 Hct 44.2 % (35.4-49) 03/21/18 07:45 MCV 94.1 fl (80-96) 03/21/18 07:45 MCHC 32.3 g/dl (32.0-35.9) 03/21/18 07:45 RDW 14.5 % (11.9-15.9) 03/21/18 07:45 Plt Count 208 K/MM3 (134-434) 03/21/18 07:45 Sodium 140 mmol/L (136-145) 03/21/18 07:45 Potassium 4.4 mmol/L (3.5-5.1) 03/21/18 07:45 Chloride 110 mmol/L (98-107) H 03/21/18 07:45 Carbon Dioxide 29 mmol/L (21-32) 03/21/18 07:45 Anion Gap 1 MMOL/L (8-16) L 03/21/18 07:45 BUN 11 mg/dL (7-18) 03/21/18 07:45 Creatinine 0.9 mg/dL (0.55-1.3) 03/21/18 07:45 Random Glucose 92 mg/dL (74-106) 03/21/18 07:45 Calcium 9.1 mg/dL (8.5-10.1) 03/21/18 07:45 Blood Type A POSITIVE 03/21/18 07:45 Antibody Screen Negative 03/21/18 01:45 INR 1.07 (0.83-1.09) 03/21/18 07:45 Carotid Duplex: No flow on the right and left internal carotid artery and compatible with bilateral proximal occlusion. CTA neck: pending. Problem List - Problems (1) Carotid stenosis, bilateral Assessment/Plan: Plan- -Follow up radiology read of CTA of neck, if completely occluded no surgical intervention -continue syncope work up as per medicine as may not be connected to carotid stenosis Code(s): I65.23 - OCCLUSION AND STENOSIS OF BILATERAL CAROTID ARTERIES
[2018-03-22] MEDS: HEPARIN NA (PORCINE) 5,000 UNITS/ML 1ML VIAL SQ SCH ×2 (13:37→22:03)
--- NOTE | 2018-03-22 14:16 | CONSULT ---
- Consultation REQUESTING PROVIDER: CONSULT REQUEST: We have been asked to surgically evaluate this patient for ( specify). PCP:Chris Zendejas MD HISTORY OF PRESENT ILLNESS: PMHx: PSHx: Home Medications Medication Instructions Recorded Atorvastatin Calcium 80 mg PO HS 03/21/18 Gabapentin [Neurontin -] 300 mg PO Q8H 03/21/18 Losartan Potassium 25 mg PO DAILY 03/21/18 Metoprolol Succinate [Toprol Xl -] 25 mg PO DAILY 03/21/18 Allergies Allergy/AdvReac Type Severity Reaction Status Date / Time latex Allergy Verified 03/21/18 15:15 REVIEW OF SYSTEMS: CONSTITUTIONAL: Absent: fever, chills, diaphoresis, generalized weakness, malaise, loss of appetite, weight change CARDIOVASCULAR: Absent: chest pain, syncope, palpitations, irregular heart rate, lightheadedness , peripheral edema RESPIRATORY: Absent: cough, shortness of breath, dyspnea with exertion, wheezing, stridor, hemoptysis GASTROINTESTINAL: Absent: abdominal pain, abdominal distension, nausea, vomiting, diarrhea, constipation, melena, hematochezia GENITOURINARY: Absent: dysuria, frequency, urgency, hesitancy, hematuria, flank pain, genital pain MUSCULOSKELETAL: Absent: myalgia, arthralgia, joint swelling, back pain, neck pain SKIN: Absent: rash, itching, pallor HEMATOLOGIC/IMMUNOLOGIC: Absent: easy bleeding, easy bruising, lymphadenopathy NEUROLOGIC: Absent: headache, focal weakness, paresthesias, dizziness, unsteady gait, seizure, mental status changes, bladder or bowel incontinence PSYCHIATRIC: Absent: anxiety, depression, suicidal or homicidal ideation, hallucinations. PHYSICAL EXAM: GENERAL: Awake, alert, and fully oriented, in no acute distress. HEAD: Normal with no signs of trauma. EYES: PERRL, sclera anicteric, conjunctiva clear. NECK: Normal ROM, supple without lymphadenopathy, JVD, or masses. LUNGS: Clear to auscultation bilat anteriorly. No wheezes, and no crackles. No accessory muscle use. HEART: Regular rate and rhythm. No murmurs ABDOMEN: Soft, nontender, not distended, normoactive bowel sounds, no guarding, no rebound, no masses. No organomegaly. MUSCULOSKELETAL: Normal ROM at all joints. No bony deformities or tenderness. No CVA tenderness. UPPER EXTREMITIES: 2+ pulses, warm, well-perfused. No cyanosis. Cap refill <2 seconds. No peripheral edema. LOWER EXTREMITIES: 2+ pulses, warm, well-perfused. No calf tenderness. No peripheral edema. NEUROLOGICAL: Normal speech, gait not observed. PSYCH: Cooperative. Good eye contact. Appropriate mood and affect. SKIN: Warm, dry, normal turgor, no rashes or lesions noted. Vital Signs Temperature 98.2 F 03/22/18 10:00 Pulse Rate 84 03/22/18 10:00 Respiratory Rate 20 03/22/18 10:00 Blood Pressure 164/93 03/22/18 10:00 O2 Sat by Pulse Oximetry (%) 96 03/22/18 08:00 Lab Results WBC 7.7 K/mm3 (4.0-10.0) 03/21/18 07:45 RBC 4.70 M/mm3 (4.00-5.60) 03/21/18 07:45 Hgb 14.3 GM/dL (11.7-16.9) 03/21/18 07:45 Hct 44.2 % (35.4-49) 03/21/18 07:45 MCV 94.1 fl (80-96) 03/21/18 07:45 MCHC 32.3 g/dl (32.0-35.9) 03/21/18 07:45 RDW 14.5 % (11.9-15.9) 03/21/18 07:45 Plt Count 208 K/MM3 (134-434) 03/21/18 07:45 Sodium 140 mmol/L (136-145) 03/21/18 07:45 Potassium 4.4 mmol/L (3.5-5.1) 03/21/18 07:45 Chloride 110 mmol/L (98-107) H 03/21/18 07:45 Carbon Dioxide 29 mmol/L (21-32) 03/21/18 07:45 Anion Gap 1 MMOL/L (8-16) L 03/21/18 07:45 BUN 11 mg/dL (7-18) 03/21/18 07:45 Creatinine 0.9 mg/dL (0.55-1.3) 03/21/18 07:45 Random Glucose 92 mg/dL (74-106) 03/21/18 07:45 Calcium 9.1 mg/dL (8.5-10.1) 03/21/18 07:45 Blood Type A POSITIVE 03/21/18 07:45 Antibody Screen Negative 03/21/18 01:45 INR 1.07 (0.83-1.09) 03/21/18 07:45
[2018-03-22] MEDS: traMADol HCL 50 MG TABLET PO PRN (16:14)
--- NOTE | 2018-03-22 18:36 | PN ---
Teaching Attending Note Name of Resident: Terri Fitch ATTENDING PHYSICIAN STATEMENT I saw and evaluated the patient. I reviewed the resident's note and discussed the case with the resident. I agree with the resident's findings and plan as documented. SUBJECTIVE: No further syncopal symptoms. Feels well. No new complaints. Awaiting CTA read to see if surgical intervention is needed. OBJECTIVE: No events on tele VSS Labs reviewed AAOx3, NAD CN2-12 wnl, no neuro deficits new, sensorium and motion intact NT ND +BS RRR s1/2 no mgr ASSESSMENT AND PLAN: 1) Syncope -Elucidating possible other causes but suspect relation to carotid A stenosis -Monitor tele (can DC tomorrow); no HDAVB noted 2) Carotid A Stenosis -Awaiting read; radiology called by resident no updates -Followup with vascular if need for procedure based on CTA results No other changes; continue other management as per resident note
--- NOTE | 2018-03-22 18:55 | PN ---
Physical Exam: SUBJECTIVE: Patient seen and examined at bedside this morning. Endorses right hip pain exacerbated with motion. Denies fevers, chills, lightheadedness, headache, changes in vision, chest pain, palpitation,s abdominal pain, nausea, vomiting, diarrhea. OBJECTIVE: Vital Signs Period Temp Pulse Resp BP Sys/Tao Pulse Ox Last 24 Hr 98.0 F-98.6 F 71-84 18-20 114-170/70-110 96-97 GENERAL: The patient is awake, alert, and fully oriented, in no acute distress. HEAD: Normal with no signs of trauma. EYES: PERRL, extraocular movements intact b/l without nystagmus. Sclera anicteric, conjunctiva clear b/l. ENT: Oropharynx clear without exudates, moist mucous membranes. NECK: Supple without lymphadenopathy. LUNGS: Breath sounds equal, clear to auscultation bilaterally. No wheezes, no crackles. No accessory muscle use. HEART: Regular rate and rhythm, S1, S2 auscultated with 3/6 holosystolic murmur at left upper sternal border. ABDOMEN: Soft, nontender, nondistended. Normoactive bowel sounds x4 quadrants. No guarding, no rebound. No hepatosplenomegaly. EXTREMITIES: 2+ radial and dorsalis pedis pulses b/l. Warm, well-perfused. No lower extremity edema b/l. PICC line at right upper extremity without erythema at insertion site. NEUROLOGICAL: Cranial nerves II through XII grossly intact. Normal speech. Patient able to move right hip with severe pain. Able to flex knee passively to 90 degrees, and extend to 180 degrees. PSYCH: Appropriate mood and affect upon my encounter today. SKIN: Warm, dry. Active Medications Generic Name Dose Route Start Last Admin Trade Name Freq PRN Reason Stop Dose Admin Aspirin 81 mg 03/22/18 10:00 03/22/18 09:00 Asa - PO 81 mg DAILY DEMETRA Administration Atorvastatin Calcium 80 mg 03/21/18 22:00 03/21/18 21:12 Lipitor - PO 80 mg HS DEMETRA Administration Heparin Sodium (Porcine) 5,000 unit 03/22/18 14:00 03/22/18 13:37 Heparin - SQ 5,000 unit TID DEMETRA Administration Losartan Potassium 25 mg 03/21/18 12:30 03/22/18 09:00 Cozaar - PO 25 mg DAILY DEMETRA Administration Metoprolol Succinate 25 mg 03/21/18 12:30 03/22/18 09:00 Toprol Xl - PO 25 mg DAILY DEMETRA Administration Tramadol HCl 50 mg 03/22/18 09:25 03/22/18 16:14 Ultram - PO 50 mg Q12H PRN Administration PAIN LEVEL 7 - 10 ASSESSMENT/PLAN: Patient is a 77 year old male with history of hypertension, coronary artery disease (s/p 3 stents), presented with right hip pain. Right hip pain -CT head shows no acute hemorrhage. Chronic infarcts noted. -Xray hip shows no acute fracture -CT hip shows no fracture, no hematoma. L5-S1 arthropathy noted. -Cardiac echo- LV systolic function is normal, RV systolic function normal. -Tramadol 50mg PO Q12H pain 7-10 -Patient to follow up with orthopedic surgery as outpatient. -F/U physical therapy consult Syncopal episode -Fall may have been mechanical vs secondary to ischemia -Carotid doppler showed b/l proximal internal carotid occlusion -F/U CTA neck -Vascular surgery consult (Dr. Almonte) appreciated. Will F/U CTA, no intervention of 100% occlusion. HTN -Toprol 25mg PO daily -Losartan 25mg PO daily HLD -Lipitor 80mg PO HS FEN -No IV fluids -Follow CMP -Sodium controlled diet Prophylaxis -Heparin 5000units subq TID Visit type - Emergency Visit Emergency Visit: Yes ED Registration Date: 03/21/18 Care time: The patient presented to the Emergency Department on the above date and was hospitalized for further evaluation of their emergent condition. - New Patient This patient is new to me today: Yes Date on this admission: 03/22/18 - Critical Care Critical Care patient: No - Discharge Referral Referred to [facility] No
[2018-03-22] MEDS: ATORVASTATIN CA 80 MG TABLET (FP) PO SCH (22:03)
[2018-03-23] MEDS: HEPARIN NA (PORCINE) 5,000 UNITS/ML 1ML VIAL SQ SCH ×2 (05:42→14:19)
[2018-03-23] MEDS: traMADol HCL 50 MG TABLET PO PRN (05:45)
[2018-03-23 06:46] LABS: HEMATOCRIT 43.1 % (35.4-49); HEMOGLOBIN 13.9 GM/dL (11.7-16.9); MCH 30.4 pg (25.7-33.7); MCHC 32.2 g/dl (32.0-35.9); MEAN CELL VOLUME 94.4 fl (80-96); PLATELET COUNT 214 K/MM3 (134-434); RBC 4.57 M/mm3 (4.00-5.60); RDW 14.5 % (11.9-15.9); WHITE BLOOD COUNT 6.2 K/mm3 (4.0-10.0)
[2018-03-23 08:07] LABS: ANION GAP 6 MMOL/L (8-16); BLOOD UREA NITROGEN 13 mg/dL (7-18); CALCIUM 8.9 mg/dL (8.5-10.1); CHLORIDE 106 mmol/L (98-107); CO2 29 mmol/L (21-32); GLUCOSE,RANDOM 84 mg/dL (74-106); POTASSIUM 4.2 mmol/L (3.5-5.1); SODIUM 141 mmol/L (136-145)
[2018-03-23] MEDS: LOSARTAN POTASSIUM 25 MG TABLET PO SCH (09:06)
[2018-03-23] MEDS: metoPROLOL SUCCINATE 25 MG TAB.SR.24H (FP) PO SCH (09:06)
[2018-03-23] MEDS: ASPIRIN 81 MG CHEWABLE TABLETS PO SCH (09:06)
[2018-03-23] MEDS ORDERED: POLYETHYLENE GLYCOL 3350 119 GM BTL PO ONE (09:28)
--- NOTE | 2018-03-23 10:53 | PN ---
Progress Note, Physician History of Present Illness: No further near or true syncope. He denies chest pain, dyspnea, palpitations, orthopnea, PND or LE edema. No events on telemetry. Ambulates with walker assistance. Road Design Engineer: Dr. Lebron Babin [facility] - Current Medication List Current Medications: Active Medications Aspirin (Asa -) 81 mg PO DAILY [facility] Last Admin: 03/23/18 09:06 Dose: 81 mg Atorvastatin Calcium (Lipitor -) 80 mg PO HS [facility] Last Admin: 03/22/18 22:03 Dose: 80 mg Heparin Sodium (Porcine) (Heparin -) 5,000 unit SQ TID [facility] Last Admin: 03/23/18 05:42 Dose: 5,000 unit Losartan Potassium (Cozaar -) 25 mg PO DAILY [facility] Last Admin: 03/23/18 09:06 Dose: 25 mg Metoprolol Succinate (Toprol Xl -) 25 mg PO DAILY [facility] Last Admin: 03/23/18 09:06 Dose: 25 mg Tramadol HCl (Ultram -) 50 mg PO Q12H PRN PRN Reason: PAIN LEVEL 7 - 10 Last Admin: 03/23/18 05:45 Dose: 50 mg - Objective Vital Signs: Vital Signs Temperature 98.0 F 03/23/18 06:00 Pulse Rate 75 03/23/18 06:00 Respiratory Rate 20 03/23/18 06:00 Blood Pressure 140/90 03/23/18 06:00 O2 Sat by Pulse Oximetry (%) 95 03/22/18 20:27 Constitutional: Yes: No Distress, Calm, Thin Neck: Yes: Supple Cardiovascular: Yes: Regular Rate and Rhythm Respiratory: Yes: Regular, CTA Bilaterally Gastrointestinal: Yes: Normal Bowel Sounds, Soft Edema: No Labs: CBC, BMP 03/23/18 06:00 03/23/18 06:00 INR, PTT INR 1.07 (0.83-1.09) 03/21/18 07:45 - ....Imaging EKG: Report Reviewed (Tele: SR, occ PVC, no sig pauses) Problem List - Problems (1) Syncope Code(s): R55 - SYNCOPE AND COLLAPSE Qualifiers: Syncope type: unspecified Qualified Code(s): R55 - Syncope and collapse (2) Hypertensive heart disease Code(s): I11.9 - HYPERTENSIVE HEART DISEASE WITHOUT HEART FAILURE Qualifiers: Heart failure presence: without heart failure Qualified Code(s): I11.9 - Hypertensive heart disease without heart failure (3) S/P coronary artery stent placement Code(s): Z95.5 - PRESENCE OF CORONARY ANGIOPLASTY IMPLANT AND GRAFT (4) Carotid stenosis, bilateral Code(s): I65.23 - OCCLUSION AND STENOSIS OF BILATERAL CAROTID ARTERIES (5) Hyperlipidemia Code(s): E78.5 - HYPERLIPIDEMIA, UNSPECIFIED Qualifiers: Hyperlipidemia type: pure hypercholesterolemia Qualified Code(s): E78.00 - Pure hypercholesterolemia, unspecified; E78.0 - Pure hypercholesterolemia (6) Coronary artery disease Code(s): I25.10 - ATHSCL HEART DISEASE OF [place] CORONARY ARTERY W/O ANG PCTRS Qualifiers: Coronary Disease-Associated Artery/Lesion type: [place] artery [place] vs. transplanted heart: [place] heart Associated angina: without angina Qualified Code(s): I25.10 - Atherosclerotic heart disease of [place] coronary artery without angina pectoris (7) Old myocardial infarction Code(s): I25.2 - OLD MYOCARDIAL INFARCTION Assessment/Plan 07/26/14 MPI: Normal study 06/20/11 Stress echo: Mild LVH, mild TR, negative ischemia 07/21/11 Carotid US: Total ICA bilaterally with normal vertebral artery flow 03/22/18 Echo: Normal biventricular size and fxn, tr MR, TR 1. Post mechanical fall and gait instability 2. HTN/HCVD 3. H/o syncope with bilateral carotid occlusion likely related to decreased cerebral perfusion through verterbral circulation and [place] 4. CAD h/o NSTEMI [place] RCA 02/09 5. Hyperlipidemia 6. PVC P:1. Avoid excessive BP reduction below SBP 130. 2. Continue ASA 81 qd, Lipitor 80 qd, losartan 25 qd, Toprol XL 25 qd, d/c HCTZ 25 qod for now 3. F/u neck CTA ordered, telemetry monitoring w/o pause thus far, PT for gait training 4. F/u with Dr. Lebron Babin [facility] as outpatient
[2018-03-23] MEDS ORDERED: ACETAMINOPHEN 325 MG TABLET (FP) PO PRN (14:10)
--- NOTE | 2018-03-23 14:10 | PN ---
Teaching Attending Note Name of Resident: John Hassan ATTENDING PHYSICIAN STATEMENT I saw and evaluated the patient. I reviewed the resident's note and discussed the case with the resident. I agree with the resident's findings and plan as documented with exceptions below. SUBJECTIVE: Patient seen and examined. right hip pain improved, ambulating better. nO new dizziness or complaints. OBJECTIVE: Vital Signs Period Temp Pulse Resp BP Sys/Tao Pulse Ox Last 24 Hr 97.7 F-98.2 F 62-75 18-20 114-144/73-92 95-96 Intake & Output 03/20/18 03/21/18 03/22/18 03/23/18 23:59 23:59 23:59 23:59 Intake Total 440 400 670 Output Total 1125 240 Balance 440 -725 430 Weight 190 lb 193 lb 4.8 oz General: sitting in chair in no acute distress Chest: CTAB, no rales or wheezing Abdomen:soft, obese, NT Extremities: no edema musculoskeletal: no spinal tenderness, ROM with some limitation at right hip ( improved from admission per patient) Home Medications Medication Instructions Recorded Atorvastatin Calcium 80 mg PO HS 03/21/18 Gabapentin [Neurontin -] 300 mg PO Q8H 03/21/18 Losartan Potassium 25 mg PO DAILY 03/21/18 Metoprolol Succinate [Toprol Xl -] 25 mg PO DAILY 03/21/18 Hydrochlorothiazide 25 mg PO QID 03/22/18 Active Medications Aspirin (Asa -) 81 mg PO DAILY [facility] Last Admin: 03/23/18 09:06 Dose: 81 mg Atorvastatin Calcium (Lipitor -) 80 mg PO HS [facility] Last Admin: 03/22/18 22:03 Dose: 80 mg Heparin Sodium (Porcine) (Heparin -) 5,000 unit SQ TID [facility] Last Admin: 03/23/18 05:42 Dose: 5,000 unit Losartan Potassium (Cozaar -) 25 mg PO DAILY [facility] Last Admin: 03/23/18 09:06 Dose: 25 mg Metoprolol Succinate (Toprol Xl -) 25 mg PO DAILY [facility] Last Admin: 03/23/18 09:06 Dose: 25 mg Tramadol HCl (Ultram -) 50 mg PO Q12H PRN PRN Reason: PAIN LEVEL 7 - 10 Last Admin: 03/23/18 05:45 Dose: 50 mg Laboratory Results - last 24 hr 03/23/18 03/23/18 06:00 06:00 WBC 6.2 RBC 4.57 Hgb 13.9 Hct 43.1 MCV 94.4 MCH 30.4 MCHC 32.2 RDW 14.5 Plt Count 214 MPV 9.0 Sodium 141 Potassium 4.2 Chloride 106 Carbon Dioxide 29 Anion Gap 6 L BUN 13 Creatinine 1.0 Creat Clearance w eGFR > 60 Random Glucose [address] pelvis, MRI spine results reviewed.Telemetry with no events. PT eval noted, ASSESSMENT AND PLAN: 77 yom with PMHx of HTN, bilateral carotid stenosis, CAD s/p PCI admitted with fall/right hip pain and prior h/o ?syncope -Mechanical fall -Right hip pain, likely osteoarthritis flare in the setting of fall -Bilateral carotid stenosis -HTN Plan: PT eval noted, Offered SNF. Patient declines and wants to go home. Discussed with social work, arranged for home vNS and PT. Fall precautions discussed in detail with patient, use of walker and risks including fall, fractures, head trauma and . Patient relays understanding but wants to go home and agreable to walker and home VNS and PT. Pain control with tylenol patch and lidocaine patch prn. Bowel regimen. CTA neck noted, discussed with vascular, outpatient follow up. Continue ASA/statin Goal SBP > 130. Cardiology input noted. d/c HCTZ Continue losartan/metoprolol d/c home today with VNS Plan discussed with patient in detail, all questions answered.
--- NOTE | 2018-03-23 15:38 | DS ---
Physical Exam: SUBJECTIVE: Patient seen and examined at bedside this morning. Endorses right hip pain exacerbated with motion. Denies fevers, chills, lightheadedness, headache, changes in vision, chest pain, palpitation,s abdominal pain, nausea, vomiting, diarrhea. OBJECTIVE: Vital Signs Period Temp Pulse Resp BP Sys/Tao Pulse Ox Last 24 Hr 97.7 F-98.2 F 62-75 18-20 114-144/73-92 95-96 PHYSICAL EXAM GENERAL: The patient is awake, alert, and fully oriented, in no acute distress. HEAD: Normal with no signs of trauma. EYES: PERRL, extraocular movements intact b/l without nystagmus. Sclera anicteric, conjunctiva clear b/l. ENT: Oropharynx clear without exudates, moist mucous membranes. NECK: Supple without lymphadenopathy. LUNGS: Breath sounds equal, clear to auscultation bilaterally. No wheezes, no crackles. No accessory muscle use. HEART: Regular rate and rhythm, S1, S2 auscultated with 3/6 holosystolic murmur at left upper sternal border. ABDOMEN: Soft, nontender, nondistended. Normoactive bowel sounds x4 quadrants. No guarding, no rebound. No hepatosplenomegaly. EXTREMITIES: 2+ radial and dorsalis pedis pulses b/l. Warm, well-perfused. No lower extremity edema b/l. PICC line at right upper extremity without erythema at insertion site. NEUROLOGICAL: Cranial nerves II through XII grossly intact. Normal speech. Patient able to move right hip with severe pain. Able to flex knee passively to 90 degrees, and extend to 180 degrees. PSYCH: Appropriate mood and affect upon my encounter today. SKIN: Warm, dry. LABS Laboratory Results - last 24 hr 03/23/18 03/23/18 06:00 06:00 WBC 6.2 RBC 4.57 Hgb 13.9 Hct 43.1 MCV 94.4 MCH 30.4 MCHC 32.2 RDW 14.5 Plt Count 214 MPV 9.0 Sodium 141 Potassium 4.2 Chloride 106 Carbon Dioxide 29 Anion Gap 6 L BUN 13 Creatinine 1.0 Creat Clearance w eGFR > 60 Random Glucose 84 Calcium 8.9 IMAGING: -CT head shows no acute hemorrhage. Chronic infarcts noted. -Xray hip shows no acute fracture -CT hip shows no fracture, no hematoma. L5-S1 arthropathy noted. -Cardiac echo- LV systolic function is normal, RV systolic function normal. -Carotid doppler showed b/l proximal internal carotid occlusion -CTA confirmed complete occlusion of b/l internal carotid arteries HOSPITAL COURSE: Date of Admission:03/21/18 Date of Discharge: 03/23/18 Patient is a 77 year old male with history of hypertension, coronary artery disease (s/p 3 stents), presented with right hip pain after a fall while vacationing in the [facility]. Pain was managed with Tramadol. Home medications reinstated for HTN, and HLD. Internal carotid artery occlusion was noted on doppler, and vascular surgery consult discussed no intervention if there is complete occlusion. With physical therapy evaluation and recommendaiton, patient discharged with home physical therapy, and VNS. Patient did not want to go to rehab. Discharged to follow up with primary care physician (referral provided to [facility]), and vascular surgeon within one week of discharge. Tylenol and Lidocaine patch for pain, docusate for constipation symptoms. Minutes to complete discharge: 35 Discharge Summary Reason For Visit: INABILITY TO AMBULATE DUE TO HIP Current Active Problems Back pain (Acute) Carotid stenosis, bilateral (Acute) Hip pain (Acute) Hypertensive heart disease (Acute) Syncope (Acute) Coronary artery disease (Chronic) Hyperlipidemia (Chronic) Old myocardial infarction (Chronic) S/P coronary artery stent placement (Chronic) Condition: Stable - Instructions Diet, Activity, Other Instructions: Hospital Course You were admitted after a fall, and monitored. The CAT scan of your head showed no bleeding within your brain. The CAT scan and Xray of your hip and pelvis showed no fractures. You were noted to have complete blockage of your carotid arteries, however no surgical intervention is warranted at this time. You will follow up with the vascular surgeon Dr. Almonte within 1-2 weeks after discharge. Medications Your Hydrochlorothiazide has been discontinued. You will continue taking Losartan, and Metoprolol for your blood pressure. Continue checking your blood pressures daily, and record the readings. Bring the recording with you to your next doctor appointment. Continue taking your home Atorvastatin, Gabapentin. Lidocaine patches have been prescribed for pain. You may take over the counter Tylenol for pain. Docusate has been prescribed for constipation. ACTIVITY: Avoid strenous exercise, heavy lifting. No driving or operating heavy machinery till next doctor visit. Follow-ups You are being discharged home with visiting nurse service, and home physical therapy. You will follow up with your primary care physician within one week of discharge. A referral to Dr. Douglas has been provided for you. You will follow up with strategic account director Dr. Lebron Babin within one week after surgery. You will follow up with vascular surgeon Dr. Almonte within 1 -2 weeks after surgery. Please return to the nearest emergency department if you experience any fevers, chills, shortness of breath, chest pain, palpitations, abdominal pain, nausea, vomiting, diarrhea, constipation, any bleeding, fall or loss of consciousness. Referrals: Sebastián Douglas MD [Staff Physician] - 1 Week Lebron Babin [Non Staff, Medical] - 1 Week Hang Almonte MD [Non Staff, Medical] - 2 Weeks Disposition: VNS/HOME HEALTH CARE - Home Medications Comprehensive Discharge Medication List: Ambulatory Orders Atorvastatin Calcium 80 mg PO HS 03/21/18 Gabapentin [Neurontin -] 300 mg PO Q8H 03/21/18 Losartan Potassium 25 mg PO DAILY 03/21/18 Metoprolol Succinate [Toprol XL -] 25 mg PO DAILY 03/21/18 Docusate Sodium 100 mg PO TID 5 Days #15 capsule 03/23/18 Lidocaine 1 each TP DAILY 5 Days #5 adh..patch 03/23/18 - Discharge Referral [facility]erred to [facility] No
[2018-03-23 18:14] VITALS: BP 138/75; PULSE 70; TEMP 98
== END 2018-03-23 18:39 | disposition home health service (06) ==
LOC: JER 18:39 → JERBED 03-21 03:29 → J5S 03-21 09:27 → J4W 03-21 14:54 → J4S 03-22 08:39
PROVIDERS: ADMIT Internal Medicine; ATTEND Hospitalist
PROC: 3E033NZ Introduction of Analgesics, Hypnotics, Sedatives into Peripheral Vein, Percutaneous Approach (ICD-10-PCS; principal; 2018-03-21)
PROC: 3E0337Z Introduction of Electrolytic and Water Balance Substance into Peripheral Vein, Percutaneous Approach (ICD-10-PCS; 2018-03-21)
PROC: 3E013GC Introduction of Other Therapeutic Substance into Subcutaneous Tissue, Percutaneous Approach (ICD-10-PCS; 2018-03-21)
DX: R26.2 Difficulty in walking, not elsewhere classified (principal); M25.551 Pain in right hip; M54.5 Low back pain; R55 Syncope and collapse; I11.9 Hypertensive heart disease without heart failure; I65.23 Occlusion and stenosis of bilateral carotid arteries; E78.5 Hyperlipidemia, unspecified; I25.10 Atherosclerotic heart disease of native coronary artery without angina pectoris; I25.2 Old myocardial infarction; Z87.891 Personal history of nicotine dependence; Z95.5 Presence of coronary angioplasty implant and graft; W19.XXXA Unspecified fall, initial encounter; Z91.81 History of falling; Y93.9 Activity, unspecified; Y92.89 Other specified places as the place of occurrence of the external cause
CPT/HCPCS: 36415; 70450-TC; 70498-TC; 72141-TC; 72146-TC; 72148-TC; 72192-TC; 73523-TC-FY; 80048; 80053; 83735; 84100; 85025; 85027; 85610; 85730; 86850; 86900; 86901; 93005; 93010; 93306-TC; 93880-TC; 96372; 96374; 96376; 97116-GP; 99284-25; G0378; J1644

== ENCOUNTER 2024-08-11 19:31 | Emergency (ER) | payer OTHER, BC ==
[2024-08-11 19:50] VITALS: TEMP 98.4; BMI 25.7
[2024-08-11] MEDS ORDERED: ACETAMINOPHEN INJECTION 100 ML ONE (20:53)
[2024-08-11] MEDS: ACETAMINOPHEN 1000 MG/100 ML BAG IVPB ONE (21:28)
[2024-08-11 21:32] LABS: BASO % 0.6 % (0-2.0); EOS % 4.8 % (0-4.5); HEMOGLOBIN 9.5 GM/dL (11.7-16.9); LYMPH % 13.4 % (8-40); MCH 25.8 pg (25.7-33.7); MCHC 31.8 g/dl (32.0-35.9); MEAN CELL VOLUME 81.3 fl (80-96); MEAN PLT VOLUME 7.3 fl (7.5-11.1); MONO % 6.4 % (3.8-10.2); NEUT % 74.8 % (42.8-82.8); PLATELET COUNT 320 10^3/uL (134-434); RBC 3.69 M/mm3 (4.00-5.60); RDW 17.5 % (11.9-15.9)
[2024-08-11 21:54] LABS: POTASSIUM 4.5 mmol/L (3.5-5.1)
[2024-08-11 21:55] LABS: CALCIUM 8.6 mg/dL (8.5-10.1)
[2024-08-11 21:56] LABS: ALBUMIN 3.1 g/dl (3.4-5.0); BLOOD UREA NITROGEN 16.9 mg/dL (7-18)
[2024-08-11 22:01] LABS: BILIRUBIN,TOTAL 0.3 mg/dL (0.2-1); TOT PROT 7.3 g/dl (6.4-8.2)
[2024-08-11 22:14] LABS: ERYTHROCYTE SEDIMENTATION RATE 103 mm/hr (0-20)
[2024-08-11 22:49] LABS: HIV INTERPRETATION NEGATIVE (NEGATIVE)
[2024-08-12 01:06] VITALS: BP 113/65; PULSE 66; RESP 17
== END 2024-08-12 04:27 ==
LOC: JER 19:31
PROC: 3E033NZ Introduction of Analgesics, Hypnotics, Sedatives into Peripheral Vein, Percutaneous Approach (ICD-10-PCS; principal; 2024-08-11)
DX: L76.82 Other postprocedural complications of skin and subcutaneous tissue (principal)
CPT/HCPCS: 0241U-QW; 36415; 72170-TC-FY; 80053; 84484; 85025; 85651; 86140; 86803; 87040; 87070; 87081; 87186; 87205; 87389; 93005; 93010; 99285-25; J0131